=== PATIENT | female | born 1965 ===

== ENCOUNTER 2024-01-25 05:07 | Day surgery (SDC) | payer OTHER ==
[2024-01-18 11:16] LABS: PH,URINE 5.5 (5.0-8.0); URINE APPEARANCE Clear; URINE BILIRRUBIN Negative (NEGATIVE); URINE BLOOD Negative; URINE COLOR Yellow; URINE GLUCOSE Negative (NEGATIVE); URINE LEUKOCYTE Negative; URINE NITRATE Negative; URINE PROTEIN Negative (NEGATIVE); URINE UROBILINOGEN 0.2 E.U./dl
[2024-01-18 11:20] LABS: URINE BACTERIA 259.5 uL (0.0-1933); URINE EPITHELIAL CELLS 15.8 uL (0.0-38.8); URINE RBC 6.8 uL (0.0-20.8); URINE WBC 2.4 uL (0.0-23.2)
[2024-01-18 11:26] LABS: HEMATOCRIT 40.3 % (36.0-45.00); HEMOGLOBIN 13.6 g/dL (12.0-15.00); MEAN CELL VOLUME 87.7 fL (80.00-100.00); MEAN CORPUSCULAR HEMOGLOBIN 29.6 pg (27.00-32.0); MEAN CORPUSCULAR HGB CONC 33.8 g/dl (32.0-36.0); PLATELET COUNT 227 K/uL (150-450); RED CELL DISTRIBUTION WIDTH 12.4 % (11.5-14.5)
[2024-01-18 11:50] LABS: PARTIAL THROMBOPLASTIN TIME 29.5 SECONDS (22.0-34.0); PROTHROMBIN TIME 10.5 SECONDS (9.0-11.5)
[2024-01-18 12:00] LABS: ALBUMIN 4.1 gm/dL (3.4-5.0); BILIRUBIN TOTAL 0.75 mg/dL (0.3-1.2); CALCIUM 9.4 mg/dL (8.5-10.1); CREATININE SERUM 0.76 mg/dL (0.55-1.02); GFR 78.72; GLOBULINA 3.2 G/DL (2.4-3.5); POTASSIUM 3.98 mEq/L (3.5-5.1); TOTAL PROTEIN 7.3 gm/dL (6.4-8.2)
[~2024-01-25 05:07] MED LIST: LEVOTHYROXINE25 MCG PO; LOSARTAN POTASS50 MG PO; PROTONIX40 MG PO
[2024-01-25] MEDS ORDERED: METRONIDAZOLE/SODIUM CHLORIDE 500 MG/100 ML PIGGYBACK IV ONE (07:40)
[2024-01-25] MEDS ORDERED: CEFTRIAXONE SODIUM 2,000 MG VIAL ONE (07:40)
[2024-01-25] MEDS ORDERED: DIBUCAINE 30 GM TUBE ONE ×2 (08:28→08:34)
[2024-01-25] MEDS ORDERED: BUPIVACAINE HCL/MPF 0.5% 30ML VIAL ONE (08:29)
[2024-01-25] MEDS ORDERED: POVIDONE-IODINE 118 ML BOTT TOP ONE (08:29)
[2024-01-25] MEDS ORDERED: LIDOCAINE HCL 1%/EPINEPHRINE 20ML VIAL IJ ONE (08:30)
[2024-01-25] MEDS ORDERED: HEMOSTATIC MATRIX 1 KIT KIT TOP ONE (08:31)
[2024-01-25] MEDS ORDERED: BUPIVACAINE LIPOSOME/PF 266 MG/20 ML VIAL IJ ONE (08:31)
[2024-01-25] MEDS ORDERED: TAMSULOSIN HCL 0.4 MG CAP PO ONE ×2 (09:30→12:37)
[2024-01-25] MEDS ORDERED: OXYC1TAB9 PO (09:35)
== END 2024-01-25 14:15 | disposition home or self-care (01) ==
LOC: CIR.AMB 05:07
PROVIDERS: ATTEND Surgery
DX: K64.2 Third degree hemorrhoids (principal); K64.4 Residual hemorrhoidal skin tags; K64.8 Other hemorrhoids; K62.5 Hemorrhage of anus and rectum; I10 Essential (primary) hypertension; K21.9 Gastro-esophageal reflux disease without esophagitis; E03.9 Hypothyroidism, unspecified

== ENCOUNTER 2024-10-25 06:53 | Day surgery (SDC) | payer OTHER ==
[~2024-10-25 06:53] MED LIST changes: +OXYC1TAB9 PO
[2024-10-25] MEDS ORDERED: DIPHENHYDRAMINE HCL 50 MG/ML VIAL 1ML IV ONE (13:00)
[2024-10-25] MEDS ORDERED: MIDAZOLAM HCL 2 MG/2 ML VIAL IV ONE (13:00)
[2024-10-25] MEDS ORDERED: fentaNYL CITRATE 50 MCG/ML AMPUL IV ONE (13:00)
== END 2024-10-25 13:35 | disposition home or self-care (01) ==
LOC: AMB-ENDOS 06:53
PROVIDERS: ATTEND Surgery
DX: K62.1 Rectal polyp (principal); K62.5 Hemorrhage of anus and rectum; K57.30 Diverticulosis of large intestine without perforation or abscess without bleeding; K62.89 Other specified diseases of anus and rectum; K64.8 Other hemorrhoids